=== PATIENT | male | born 1975 | race Caucasian/White ===

== ENCOUNTER 2016-12-01 10:50 | Emergency (ER) | payer BC ==
[2016-12-01] MEDS ORDERED: HYDROcod/ACETAM 5/325 MG TABLET PO STA (12:21)
[2016-12-01] MEDS ORDERED: HYDROcod/ACETAM 5/325 MG TABLET ONE (12:24)
== END 2016-12-01 12:46 | disposition home or self-care (01) ==
DX: S82.832A Other fracture of upper and lower end of left fibula, initial encounter for closed fracture (principal); W19.XXXA Unspecified fall, initial encounter; X50.1XXA Overexertion from prolonged static or awkward postures, initial encounter; Y92.009 Unspecified place in unspecified non-institutional (private) residence as the place of occurrence of the external cause; I10 Essential (primary) hypertension
CPT/HCPCS: 29515; 73610; 73630; 99283; 99284; A9270